=== PATIENT | female | born 1980 | race Caucasian/White ===

== ENCOUNTER 2018-07-30 17:59 | Emergency (ER) | payer MEDICAID ==
[2018-07-30] MEDS: HYDROCODONE/APAP (5/325) TAB PO (19:06)
[2018-07-30] MEDS: DIPHTH/TET/ACEL PERTUSS (ADULT) 0.5 ML VIAL IM* (19:07)
== END 2018-07-30 22:34 | disposition home or self-care (01) ==
LOC: FTE 17:59
DX: S67.190A Crushing injury of right index finger, initial encounter (principal); I10 Essential (primary) hypertension; W23.0XXA Caught, crushed, jammed, or pinched between moving objects, initial encounter; Y92.810 Car as the place of occurrence of the external cause
CPT/HCPCS: 29130; 73140; 90471; 90715; 99283-25